=== PATIENT | female | born 2000 | race Caucasian/White ===

== ENCOUNTER 2023-10-31 23:08 | Emergency (ER) | payer MEDICAID ==
[~2023-10-31] VITALS: Ht 160 cm; Wt 77.0 kg
[2023-10-31 23:31] VITALS: BP 115/78; PULSE 94; RESP 20; TEMP 98; O2SAT 100
[2023-11-01 00:05] LABS: CLARITY URINE CLEAR (CLEAR); COLOR URINE YELLOW (YELLOW); GLUCOSE URINE NEGATIVE (NEGATIVE); KETONES URINE TRACE (NEGATIVE); LEUKOCYTE ESTERASE URINE 1+ (NEGATIVE); NITRITE URINE NEGATIVE (NEGATIVE); OCCULT BLOOD URINE NEGATIVE (NEGATIVE); PH URINE 6.5 (4.5-8.0); PROTEIN URINE TRACE (NEGATIVE); UROBILINOGEN URINE 0.2 E.U./dL (0.2-1.0)
[2023-11-01 00:17] LABS: BACTERIA URINE 2+; RBC URINE 0-2 /hpf (0-2); SQUAMOUS EPITHELIAL CELL URINE 2+ /lpf (RARE/1+); WBC URINE 0-2 /hpf (0-2)
[2023-11-01 00:18] LABS: BASOPHILS % 0.2 % (0.0-2.0); EOSINOPHILS % 0.9 % (0.0-5.0); HEMATOCRIT. 37.4 % (36.0-48.0); HEMOGLOBIN. 12.6 g/dL (12.0-16.0); LYMPHOCYTES % 17.7 % (20.0-50.0); MEAN CORPUSCULAR HEMOGLOBIN 30.6 pg (28.0-32.0); MEAN CORPUSCULAR HGB CONC 33.8 g/dL (31.0-37.0); MEAN CORPUSCULAR VOLUME 90.7 fL (81.0-99.0); NEUTROPHILS % 75.2 % (40.0-76.0); PLATELET 258 x1000/uL (130-400); RED BLOOD CELL COUNT 4.13 mill/uL (4.2-5.4); RED CELL DISTRIBUTION WIDTH 14.2 % (11.6-14.6); WHITE BLOOD COUNT 12.6 x1000/uL (4.5-11.0)
[2023-11-01 00:22] LABS: CHLORIDE 105 mEq/L (98-107); POTASSIUM 3.4 mEq/L (3.5-5.1); SODIUM 136 mEq/L (136-145)
[2023-11-01 00:23] LABS: CALCIUM 9.2 mg/dL (8.7-10.4); CARBON DIOXIDE 21 mEq/L (21-32)
[2023-11-01 00:28] LABS: CREATININE 0.5 mg/dL (0.6-1.0); GLUCOSE 84 mg/dL (70-105); UREA NITROGEN BLOOD 5 mg/dL (9-23)
[2023-11-01 00:42] LABS: B-HCG QUANTITATIVE 15736 mIU/mL (<3)
[2023-11-01] MEDS: ONDANSETRON 4MG ODT PO ONE (00:55)
[2023-11-01] MEDS ORDERED: ONDA4TAB50 MT (01:46)
[2023-11-01] MEDS ORDERED: TOPUD MT (01:46)
[2023-11-01] MEDS ORDERED: NITR-87 MT (01:47)
== END 2023-11-01 02:18 | disposition home or self-care (01) ==
LOC: ER 23:08
DX: O21.0 Mild hyperemesis gravidarum (principal); Z3A.17 17 weeks gestation of pregnancy
CPT/HCPCS: 99283; 80048; 81003; 81025; 84702; 85025; 36415; Q0162